=== PATIENT | male | born 2000 ===

== ENCOUNTER 2021-12-27 08:48 | Emergency (ER) | payer SELFPAY ==
[2021-12-27 09:15] VITALS: BP 140/63
== END 2021-12-27 14:50 | disposition left against medical advice (07) ==
LOC: EDBD → ED 08:48
DX: Z04.1 Encounter for examination and observation following transport accident (principal); Z53.21 Procedure and treatment not carried out due to patient leaving prior to being seen by health care provider; V87.7XXA Person injured in collision between other specified motor vehicles (traffic), initial encounter; Y93.89 Activity, other specified; Y92.488 Other paved roadways as the place of occurrence of the external cause; Y99.8 Other external cause status

== ENCOUNTER 2021-12-28 04:06 | Emergency (ER) | payer SELFPAY ==
[2021-12-28 06:01] VITALS: BP 153/96
== END 2021-12-28 18:48 | disposition left against medical advice (07) ==
LOC: EDBD → ED 04:06
DX: M54.9 Dorsalgia, unspecified (principal); Z53.21 Procedure and treatment not carried out due to patient leaving prior to being seen by health care provider